=== PATIENT | male | born 1990 | race Caucasian/White ===

== ENCOUNTER 2024-02-11 12:21 | Outpatient (REF) | payer OTHER, SELFPAY ==
[2024-02-11 14:24] LABS: Anion Gap 12 (12-20); Blood Urea Nitrogen 19 mg/dL (9-16); Calcium 9.4 mg/dL (8.4-10.2); Carbon Dioxide 26 mmol/L (22-29); Chloride 105 mmol/L (96-108); Glucose Random 96 mg/dL (60-115); Potassium 4.1 mmol/L (3.3-5.1); Sodium 139 mmol/L (135-145)
[2024-02-11 14:27] LABS: Erythrocyte Sedimentation Rate 1 MM/HR (0-15); Estimated Glomerular Filt Rate > 60
[2024-02-12 10:13] LABS: Lyme Abs Screen <0.90 index
[2024-02-16 12:38] LABS: Anti Nuclear Antibody Screen NEGATIVE (NEGATIVE)
== END 2024-02-11 12:22 | disposition home or self-care (01) ==
LOC: HO.LAB 12:21
PROVIDERS: PCP Pediatrics; Visit Provider Psychiatry & Neurology Neurology
DX: G37.9 Demyelinating disease of central nervous system, unspecified (principal)
CPT/HCPCS: 36415; 80048; 82550; 85652; 86038; 86617; 86618

== ENCOUNTER 2024-03-18 18:54 | Outpatient (REF) | payer OTHER, SELFPAY ==
--- NOTE | ~2024-03-18 | MR_ITS ---
EXAMINATION: MR CERVICAL SPINE WITHOUT CONTRAST CLINICAL INFORMATION: 33-year-old male, Bilateral upper and lower extremity paresthesias and weakness. Rule out demyelinating disease. COMPARISON: None TECHNIQUE: Multiplanar multisequence MR imaging of the cervical spine was done without IV contrast. Examination performed on a 1.5 Arlene magnet. FINDINGS: Alignment: Lordotic loss, straightened. No scoliosis. There is a 2 mm degenerative retrolisthesis of C5 on C6. Craniocervical Junction/C1-C2 Articulations: Intact and aligned. Visualized Intracranial Structures: Within normal limits. Vertebral Bodies: No compression deformities. No bone marrow edema or endplate edema. No abnormal infiltrating bone marrow signal. Discs: Mild to moderate loss of disc height and signal at C5-C6. Minimal loss at C7-T1. Remainder of the intervertebral discs are normal. Bone Marrow: Normal. Spinal Cord: There is a syrinx in the inferior cervical cord spanning the inferior one third of C5 to the superior one third of the T1, measuring 4.4 x 0.3 x 0.3 cm. No associated cord thinning or expansion. Subtle central canal dilation at the C4-C5 disc level to the top of this syrinx is also present, as well as prominence within the visualized upper thoracic cord to T3. Axial Disc Space Images: C2-C3: No central canal or neural foraminal narrowing. Normal facets. C3-C4: No central canal or neural foraminal narrowing. Normal facets. C4-C5: No central canal or neural foraminal narrowing. Normal facets. C5-C6: Central broad-based disc protrusion with annular fissuring, most prominent in the left paracentral region, which indents upon the ventral thecal sac, and may contact the left central cord, however there is no cord flattening, signal abnormality, or effacement of dorsal CSF space. Mild central canal stenosis. Mild right uncinate spurring is present. The neural foramina are widely patent. Normal facets. C6-C7: Tiny central disc protrusion without mass effect. No central canal or neural foraminal narrowing. There is a 3 mm left foraminal perineural root sleeve cyst. Normal facets. C7-T1: Tiny right paracentral disc protrusion without mass effect. Mild bilateral uncinate spurring. No central canal or neural foraminal narrowing. Normal facets. T1-T3: No significant central canal or neural foraminal narrowing. Normal facets. Extracranial Soft Tissues: The visualized extracranial head/neck soft tissues are unremarkable within the limitations of the study. Thyroid is obscured by a saturation band. No adenopathy noted. No prevertebral, paravertebral, or paraspinous edema. Left vertebral artery is dominant. MR/MR cervical spine wo con IMPRESSION: 1. 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 Associated mild prominence of the central canal of the spinal cord both above and below the syrinx. Would consider obtaining thoracic spine MRI as well as obtaining postcontrast sequences of both the cervical and thoracic spine. 2. No significant central canal, lateral recess, or neural foraminal stenosis. 3. Based central disc protrusion at C5-C6 with a subtle retrolisthesis. This approaches and may contact the left ventral aspect of the cord without effacing dorsal CSF spaces or cord flattening. 4. Loss of normal lordosis with mild straightening.
--- NOTE | ~2024-03-18 | MR_ITS ---
EXAMINATION: MR BRAIN WITHOUT CONTRAST CLINICAL INFORMATION: Peripheral neuropathy involving all limbs with weakness, and numbness. Occipital headaches. Rule out demyelinating disorder. COMPARISON: None available. TECHNIQUE: MRI of the brain was obtained using routine sequences without contrast. In addition to standard sequences, sagittal T2 FLAIR was also obtained. Examination was performed on a 1.5 Arlene unit. FINDINGS: There is no diffusion restriction. There is no intracranial hemorrhage, acute infarction, mass effect, or edema. Ventricles, sulci, and cisterns are normal in size and configuration for patient age. No shift of midline. No abnormal hemosiderin deposition is identified. There are minimal subtle mildly confluent foci of T2 hyperintensity in the periventricular white matter, nonspecific and not in a configuration suspicious for any demyelinating disease. This is most likely small vessel ischemic change. Midline structures appear normally formed. The pituitary gland appears normal. Posterior fossa structures appear normal. Cerebellar tonsils are appropriately located. Major flow voids are preserved within the skull base. The globes and orbital contents demonstrate no abnormalities. Prominent mucus retention cyst in the dependent right maxillary sinus. This encompasses approximately one third of the volume of the sinus. Remainder of the paranasal sinuses are normally aerated. The frontal sinuses are somewhat hypoplastic. Minimal right nasal septal deviation with a small mid septal spur. The mastoids and tympanic cavities are normally aerated. Extracranial soft tissues demonstrate no abnormalities. No suspicious bone marrow changes are evident. Atlantoaxial joint is normal. Imaged upper cervical cord is normal. MR/MR head/brain wo con IMPRESSION: 1. No evidence of intracranial hemorrhage, acute infarction, mass effect, edema, or abnormal susceptibility. 2. Minimal there is white matter changes predominantly periventricular deep white matter, nonspecific, but most likely on the basis of small vessel ischemic changes. No distribution or morphology specific to demyelinating disease. 3. Prominent right maxillary sinus mucus retention cyst.
== END 2024-03-18 18:55 | disposition home or self-care (01) ==
LOC: HO.MRI 18:54
PROVIDERS: PCP Pediatrics; Visit Provider Psychiatry & Neurology Neurology
DX: G37.9 Demyelinating disease of central nervous system, unspecified (principal)
CPT/HCPCS: 70551; 72141

== ENCOUNTER → 2024-03-18 18:54 | Outpatient (BNV) | payer OTHER, SELFPAY | PROVIDERS: PCP Pediatrics; Visit Provider Radiology Diagnostic Radiology | DX: G62.9 Polyneuropathy, unspecified (principal) | CPT/HCPCS: 70551; 72141 ==

== ENCOUNTER 2024-06-10 10:58 | Outpatient (REF) | payer OTHER, SELFPAY ==
--- NOTE | ~2024-06-10 | MR_ITS ---
MR THORACIC SPINE WITHOUT AND WITH CONTRAST CLINICAL INFORMATION: Syringomyelia. COMPARISON: Cervical spine MRI March 18, 2024. TECHNIQUE: MRI of the thoracic spine was obtained using routine sequences with and without contrast. Intravenous contrast: 6.5 mL Gadavist. FINDINGS: Partially imaged syrinx within the lower cervical spinal cord extending to the T1 level discussed in detail on the prior cervical spine MRI. Additional multisegment syrinx at the T3-T6 level measuring up to 2.5 mm in diameter and at the T7-T9 level measuring up to 4 mm in diameter. Mild prominence of the central canal within the lower thoracic spinal cord at T12-L1. There is no pathologic enhancement within the thoracic spinal cord. No suspicious enhancing intraosseous lesions. The vertebral body heights are maintained. Mild disc volume loss of the upper to midthoracic levels. There is a right paracentral disc protrusion at T4-T5 which flattens the ventral cord without resulting in significant central canal stenosis. No severe central canal stenosis and no severe foraminal stenosis within the thoracic spine. MR/MR thoracic spine wo/w con IMPRESSION: * Multisegment syrinx partially imaged within the lower cervical spinal cord extending to the T1 level as well as within the thoracic cord most prominent at T3-T6 and T7-T9. There is no pathologic enhancement within the thoracic spine. The cervical component of the syrinx is not included on postcontrast imaging of the thoracic spine and as recommended on the prior study, postcontrast imaging of the cervical spine is advised. * There is a right paracentral disc protrusion at T4-T5 which flattens the ventral cord without resulting in significant central canal stenosis. No severe central canal stenosis and no severe foraminal stenosis within the thoracic spine. Electronically signed by: Jorge Lim MD 06/28/2024 04:27 PM EDT
[2024-06-10] MEDS: gadobutroL 7.5 ML VIAL IVPUSH (11:39)
== END 2024-06-10 10:59 | disposition home or self-care (01) ==
LOC: HO.MRI 10:58
PROVIDERS: PCP Pediatrics; Visit Provider Psychiatry & Neurology Neurology
DX: G95.0 Syringomyelia and syringobulbia (principal)
CPT/HCPCS: 72157; A9585